=== PATIENT | male | born 1950 | race Caucasian/White ===

== ENCOUNTER 2021-05-28 15:07 | Inpatient (IN) | payer MEDICARE ==
[2021-05-28] MEDS: Sodium Chloride 0.9% 10 ML Syringe FLUSH PRN (15:30)
[2021-05-28] MEDS ORDERED: Sodium Chloride 0.9% 1,000 ML IV SCH (16:15)
[2021-05-28] MEDS ORDERED: Diltiazem 25 MG/5 ML SDV IVPUSH ONE (16:15)
[2021-05-28] MEDS ORDERED: Aspirin 81 MG Tab.Chew PO ONE (16:15)
[2021-05-28 16:23] LABS: BASE EXCESS VENOUS,POC 2 mmol/L (-2 - 3+); PCO2 VENOUS,POC 38 mmHg (41-51); PH VENOUS,POC 7.44 pH Units (7.32-7.43)
[2021-05-28] MEDS ORDERED: cefTRIAXone 2 GM Vial IVPUSH ONE (18:32)
[2021-05-28] MEDS ORDERED: Iopamidol 755 Mg/ML 75 ML Bottle IV ONE (18:38)
[2021-05-28] MEDS ORDERED: Albuterol 0.083% 2.5 MG/3 ML Neb Soln NEB PRN (19:27)
[2021-05-28] MEDS ORDERED: Acetaminophen 325 MG Tab PO PRN (19:27)
[2021-05-28] MEDS ORDERED: Ondansetron 4 MG/2 ML SDV IV PRN (19:27)
[2021-05-28] MEDS ORDERED: Nicotine 21 MG/24 Hr Patch TRDERM SCH (19:30)
[2021-05-28] MEDS ORDERED: Enoxaparin 120 MG/0.8 ML Syringe SUBCUT SCH ×2 (20:00)
[2021-05-28] MEDS ORDERED: Doxycycline 100 MG in Sodium Chloride 0.9% 100 ML IV SCH (20:00)
[2021-05-28] MEDS: Albuterol/Ipratropium 3.0-0.5 MG/3 ML Neb Soln NEB SCH (20:55)
[2021-05-28] MEDS: methylPREDNISolone Sodium Succinate 40 MG/1 ML SDV IVPUSH SCH (20:55)
[2021-05-28] MEDS: Enoxaparin 100 MG/1 ML Syringe SUBCUT SCH (22:00)
[2021-05-28] MEDS: Diltiazem 120 MG Cap.CD PO SCH (22:24)
[2021-05-29] MEDS: Sodium Chloride 0.9% 1,000 ML IV SCH ×2 (03:33→15:21)
[2021-05-29] MEDS: Albuterol/Ipratropium 3.0-0.5 MG/3 ML Neb Soln NEB SCH ×4 (06:02→20:40)
[2021-05-29] MEDS: methylPREDNISolone Sodium Succinate 40 MG/1 ML SDV IVPUSH SCH (08:14)
[2021-05-29] MEDS: Enoxaparin 100 MG/1 ML Syringe SUBCUT SCH ×2 (08:46→20:40)
[2021-05-29] MEDS: Doxycycline 100 MG in Sodium Chloride 0.9% 100 ML IV SCH ×2 (09:11→20:43)
[2021-05-29] MEDS: cefTRIAXone 2 GM Vial IVPUSH SCH (17:35)
[2021-05-29] MEDS: Diltiazem 120 MG Cap.CD PO SCH (20:40)
[2021-05-29] MEDS: Nicotine 21 MG/24 Hr Patch TRDERM SCH (20:41)
[2021-05-30] MEDS: Sodium Chloride 0.9% 1,000 ML IV SCH (02:20)
[2021-05-30] MEDS: Albuterol/Ipratropium 3.0-0.5 MG/3 ML Neb Soln NEB SCH ×4 (06:18→20:46)
[2021-05-30] MEDS: Enoxaparin 100 MG/1 ML Syringe SUBCUT SCH ×2 (08:19→20:46)
[2021-05-30] MEDS: methylPREDNISolone Sodium Succinate 40 MG/1 ML SDV IVPUSH SCH (08:21)
[2021-05-30] MEDS: Doxycycline 100 MG in Sodium Chloride 0.9% 100 ML IV SCH (08:49)
[2021-05-30] MEDS: Sodium Chloride 0.9% 10 ML Syringe FLUSH PRN ×2 (19:01→19:05)
[2021-05-30] MEDS: cefTRIAXone 2 GM Vial IVPUSH SCH (19:01)
[2021-05-30] MEDS: Nicotine 21 MG/24 Hr Patch TRDERM SCH (20:45)
[2021-05-30] MEDS: Diltiazem 120 MG Cap.CD PO SCH (20:45)
[2021-05-30] MEDS: Doxycycline 100 MG Tab PO SCH (20:45)
[2021-05-31] MEDS: Albuterol/Ipratropium 3.0-0.5 MG/3 ML Neb Soln NEB SCH ×4 (06:08→20:57)
[2021-05-31] MEDS: Enoxaparin 100 MG/1 ML Syringe SUBCUT SCH ×2 (08:58→20:57)
[2021-05-31] MEDS: methylPREDNISolone Sodium Succinate 40 MG/1 ML SDV IVPUSH SCH (09:00)
[2021-05-31] MEDS: Doxycycline 100 MG Tab PO SCH ×2 (10:00→21:28)
[2021-05-31] MEDS: cefTRIAXone 2 GM Vial IVPUSH SCH (17:09)
[2021-05-31] MEDS: Diltiazem 120 MG Cap.CD PO SCH (20:58)
[2021-05-31] MEDS: Nicotine 21 MG/24 Hr Patch TRDERM SCH (20:58)
[2021-06-01] MEDS: Albuterol/Ipratropium 3.0-0.5 MG/3 ML Neb Soln NEB SCH ×2 (06:19→10:35)
[2021-06-01] MEDS: Enoxaparin 100 MG/1 ML Syringe SUBCUT SCH (09:45)
[2021-06-01] MEDS: methylPREDNISolone Sodium Succinate 40 MG/1 ML SDV IVPUSH SCH (09:46)
[2021-06-01] MEDS: Doxycycline 100 MG Tab PO SCH (09:46)
[2021-06-01] MEDS: Sodium Chloride 0.9% 10 ML Syringe FLUSH PRN (09:47)
[2021-06-01] MEDS ORDERED: Cefdinir 300 MG Cap PO SCH (21:00)
== END 2021-06-01 13:45 | disposition home health service (06) | DRG 193 ==
LOC: FB.ED 15:07 → FB.MS 19:47
PROVIDERS: ADMIT Emergency Medicine; ATTEND Family Medicine
DX: J18.9 Pneumonia, unspecified organism (principal); I26.99 Other pulmonary embolism without acute cor pulmonale; G93.6 Cerebral edema; C79.31 Secondary malignant neoplasm of brain; J44.0 Chronic obstructive pulmonary disease with (acute) lower respiratory infection; R91.8 Other nonspecific abnormal finding of lung field; I48.91 Unspecified atrial fibrillation; J43.1 Panlobular emphysema; Z51.5 Encounter for palliative care; Z66 Do not resuscitate; F17.200 Nicotine dependence, unspecified, uncomplicated; Z20.822 Contact with and (suspected) exposure to COVID-19; F17.210 Nicotine dependence, cigarettes, uncomplicated; Z79.51 Long term (current) use of inhaled steroids; Z90.49 Acquired absence of other specified parts of digestive tract; Z79.899 Other long term (current) drug therapy
CPT/HCPCS: 36415; 71045; 71275; 80048; 80053; 81001; 83605; 83735; 83880; 84484; 85025; 85379; 85610; 85730; 86140; 87040; 93005; 93010; 94640; 96374; 96375; 99285; 99285-25; A9270-GY; J0696; J1650; J2920; J3490; J7030; J7620; Q9967; U0002

== ENCOUNTER 2021-06-08 11:11 | Emergency (ER) | payer SELFPAY ==
[2021-06-08 12:14] LABS: BASE EXCESS VENOUS,POC 1 mmol/L (-2 - 3+); PCO2 VENOUS,POC 42 mmHg (41-51); PH VENOUS,POC 7.41 pH Units (7.32-7.43)
[2021-06-08] MEDS ORDERED: Haloperidol Lactate 5 MG/ML SDV IM ONE (14:12)
[2021-06-08] MEDS ORDERED: LORazepam 2 MG/ML SDV IVPUSH ONE (15:35)
[2021-06-08] MEDS ORDERED: methylPREDNISolone Sodium Succinate 125 MG/2 ML SDV IVPUSH ONE (16:15)
[2021-06-08] MEDS ORDERED: levETIRAcetam 500 MG in Sodium Chloride 0.9% 100 ML IV ONE (18:31)
== END 2021-06-08 18:58 ==
LOC: FB.ED 11:11
DX: G93.6 Cerebral edema (principal); F05 Delirium due to known physiological condition; C79.31 Secondary malignant neoplasm of brain; I48.91 Unspecified atrial fibrillation; J44.9 Chronic obstructive pulmonary disease, unspecified; F17.210 Nicotine dependence, cigarettes, uncomplicated; Z90.49 Acquired absence of other specified parts of digestive tract; Z79.899 Other long term (current) drug therapy; Z20.822 Contact with and (suspected) exposure to COVID-19
CPT/HCPCS: 36415; 70450; 71250; 80053; 85025; 86140; 96372; 96374; 96375; 99284; 99285-25; J1630; J1953; J2060; J2930; J3490; U0002